=== PATIENT | female | born 1975 | race Hispanic/Latino ===

== ENCOUNTER → 2017-03-21 | Outpatient (CLI) | payer BC ==
[~2017-03-21] MED LIST: CLINDAMYCIN HC150 MG PO
--- NOTE | 2017-03-21 08:58 | Diagnostic Imaging Report ---
PROCEDURE:ABDOMINAL ULTRASOUND COMPARISON:None. INDICATIONS:Abdominal Pain TECHNIQUE: Blake scale color Doppler ultrasound FINDINGS: Imaged segments of the inferior vena cava and abdominal aorta are normal caliber. The middle and distal aortic segments are obscured. Normal pancreatic head and proximal body. The distal body and tail are obscured by bowel gas. Right liver span 15.6 cm. Smooth parenchymal margin with normal echogenicity. Portal vein diameter 1 cm; normal flow direction. Normal gallbladder. Wall thickness 2 mm. Common bile duct diameter 4 mm. Right kidney: 12.7 x 4.3 x 4.9 cm Left kidney: 12.6 x 5.4 x 5.3 cm Both kidneys are normal. Splenic length 9 cm. No ascites. CONCLUSION: Normal abdominal ultrasound. Dictated by: Pedrito Aguilar M.D. on 03/21/2017 at 9:07 Electronically approved by: Pedrito Aguilar M.D. on 03/21/2017 at 9:07
== END ==
LOC: US 08:18
PROVIDERS: ATTEND Family Medicine
DX: R10.9 Unspecified abdominal pain (principal)
CPT/HCPCS: 76700

== ENCOUNTER → 2017-06-12 | Outpatient (CLI) | payer BC ==
--- NOTE | 2017-06-12 13:49 | Diagnostic Imaging Report ---
PROCEDURE:L-SPINE COMPLETE COMPARISON:None. INDICATIONS:BACK PAIN FINDINGS: There are 5 lumbar-type vertebral bodies. The vertebral bodies are well-aligned without evidence of spondylolisthesis. There are no fractures, lytic or blastic lesions. The disc-space heights are well-maintained. Minimal degenerative changes are present in the lumbar spine as evidenced by multilevel anterior osteophytosis and bilateral facet hypertrophy at L4/L5 and L5/S1. Surgical clips are present in the abdomen. The sacroiliac joints are unremarkable. CONCLUSION: No acute radiographic abnormality. Degenerative changes of the lumbar spine. Dictated by: Govind Fitzgerald M.D. on 06/12/2017 at 13:50 Electronically approved by: Govind Fitzgerald M.D. on 06/12/2017 at 13:50
== END ==
LOC: RAD 12:29
PROVIDERS: ATTEND Family Medicine
DX: M54.5 Low back pain (principal)
CPT/HCPCS: 72110; 81025

== ENCOUNTER → 2018-02-02 | Outpatient (CLI) | payer BC ==
--- NOTE | 2018-02-02 08:14 | Diagnostic Imaging Report ---
PROCEDURE:ABDOMINAL ULTRASOUND COMPARISON:Abdominal ultrasound 03/21/2017. INDICATIONS:EPIGASTRIC PAIN FINDINGS: Liver: Measures up to 17.4 cm. Increased hepatic parenchymal echogenicity. No focal mass. Main portal vein: Measures 0.8 cm. Hepatopetal flow. Gallbladder: No evidence of wall thickening, stone, or pericholecystic fluid. Common Bile Duct: Measures 0.3 cm. No echogenic filling defect. Sonographic King's sign: Negative. Right kidney: Measures 12.2 cm. No solid or cystic mass, echogenic calculi, or hydronephrosis. Normal parenchymal echogenicity. Left kidney: Measures 11 cm. No solid or cystic mass, echogenic calculi, or hydronephrosis. Normal parenchymal echogenicity. Spleen: No splenomegaly. Pancreas: The visualized portions of the pancreas are normal. Inferior vena cava: Normal. Aorta: Normal. Ascites: None. CONCLUSION: Hepatomegaly with hepatic steatosis. Dictated by: XOCHITL PEREZ M.D. on 02/02/2018 at 8:24 Electronically approved by: XOCHITL PEREZ M.D. on 02/02/2018 at 8:24
== END ==
LOC: US 07:14
PROVIDERS: ATTEND Internal Medicine Gastroenterology
DX: R10.13 Epigastric pain (principal); K92.1 Melena; K59.00 Constipation, unspecified; R11.10 Vomiting, unspecified; E66.9 Obesity, unspecified; Z71.3 Dietary counseling and surveillance
CPT/HCPCS: 76700

== ENCOUNTER → 2018-07-16 | Outpatient (CLI) | payer BC ==
--- NOTE | 2018-07-16 19:39 | Diagnostic Imaging Report ---
Frontal and lateral views of the chest. HISTORY: Flu at the end of May, chronic cough COMPARISON: None available. DISCUSSION: Lungs: Mild prominence of the peribronchial interstitial markings. No evidence of a consolidative pneumonia or pulmonary alveolar edema. Pleura: No pleural effusion or pneumothorax. Heart and mediastinum: The cardiomediastinal silhouette appears unremarkable. Bones and soft tissues: Appear unremarkable. IMPRESSION: 1. Findings which can be seen in the setting of a nonspecific bronchitis. 2. No consolidative pneumonia. Signed by: Dr. Andrew Rosado D.O., M.M.M. on 07/16/2018 7:35 PM
== END ==
LOC: RAD 17:12
PROVIDERS: ATTEND Family Medicine
DX: R05 Cough (principal)
CPT/HCPCS: 71046

== ENCOUNTER 2020-10-19 22:34 | Emergency (ER) | payer BC ==
[~2020-10-19] VITALS: Ht 162.6 cm; Wt 93.0 kg
[2020-10-19 23:37] LABS: BASOPHILS # (AUTO) 0.1 (0.0-0.1); BASOPHILS % 0.6 % (0.0-1.0); EOSINOPHILS # (AUTO) 0.1 (0.0-0.4); EOSINOPHILS % 1.1 % (0.0-6.0); HEMATOCRIT 43.7 % (34.2-44.1); HEMOGLOBIN 14.2 g/dL (12.0-16.0); LYMPHOCYTES # (AUTO) 2.7 (1.0-3.2); LYMPHOCYTES % 23.6 % (18.0-39.1); MEAN CORPUSCULAR HEMOGLOBIN 29.9 pg (28-32); MEAN CORPUSCULAR HGB CONC 32.5 g/dL (31-35); MONOCYTES # (AUTO) 0.8 (0.2-0.8); MONOCYTES % 6.6 % (4.4-11.3); NEUTROPHILS # (AUTO) 7.8 (2.1-6.9); NEUTROPHILS % 67.6 % (38.7-80.0); PLATELET COUNT 335 x10e3/uL (140-360); RED BLOOD COUNT 4.75 x10e6/uL (3.6-5.1); RED CELL DISTRIBUTION WIDTH 13.3 % (11.7-14.4)
[2020-10-19 23:55] LABS: ALBUMIN 3.8 g/dL (3.5-5.0); ANION GAP 15.8 mmol/L (8-16); CALCIUM 9.1 mg/dL (8.4-10.2); CREATININE, SERUM 0.79 mg/dL (0.57-1.11); POTASSIUM 3.8 mmol/L (3.5-5.1)
[2020-10-20 00:01] LABS: CREATINE KINASE MB 0.3 ng/mL (0-5.0)
[2020-10-20] MEDS ORDERED: IOPAMIDOL 370 MG/ML 200 ML INFUS..BTL INJ ONE (00:45)
[2020-10-20] MEDS ORDERED: SODIUM CHLORIDE 0.9% 100 ML ONE (00:45)
== END 2020-10-20 02:25 | disposition home or self-care (01) ==
LOC: ER 23:50
DX: R20.0 Anesthesia of skin (principal); R73.9 Hyperglycemia, unspecified; F32.9 Major depressive disorder, single episode, unspecified
CPT/HCPCS: 36415; 70496; 80053; 82550; 82553; 84484; 84702; 85025; 93005; 99283; J7050; Q9967